=== PATIENT | male | born 1975 | race Two or more races ===

== ENCOUNTER → 2020-08-25 | Outpatient (CLI) | payer OTHER | END | disposition home or self-care (01) | LOC: OFIC 805 08:30 | PROVIDERS: ATTEND Otolaryngology | DX: G47.33 Obstructive sleep apnea (adult) (pediatric) (principal); J30.89 Other allergic rhinitis; R09.81 Nasal congestion ==

== ENCOUNTER 2021-07-11 00:59 | Emergency (ER) | payer OTHER ==
[~2021-07-11] VITALS: Ht 175.3 cm; Wt 90.7 kg
[2021-07-11] MEDS ORDERED: COZAAR100 MG (01:16)
[2021-07-11] MEDS ORDERED: SYNTHROID50 MCG (01:17)
[2021-07-11] MEDS ORDERED: ZYRTEC10 M3 (01:17)
== END 2021-07-11 05:45 | disposition designated cancer center or children's hospital (05) ==
LOC: ER 00:59
DX: S02.31XA Fracture of orbital floor, right side, initial encounter for closed fracture (principal); R51.9 Headache, unspecified; R41.0 Disorientation, unspecified; V43.52XA Car driver injured in collision with other type car in traffic accident, initial encounter; Y93.89 Activity, other specified; Y92.410 Unspecified street and highway as the place of occurrence of the external cause; M79.81 Nontraumatic hematoma of soft tissue; Z03.818 Encounter for observation for suspected exposure to other biological agents ruled out